=== PATIENT | female | born 1965 | race African-American/Black ===

== ENCOUNTER → 2016-08-03 | Outpatient (CLI) | payer BC | LOC: MC.RAD 09:00 | DX: Z12.31 Encounter for screening mammogram for malignant neoplasm of breast (principal); R92.8 Other abnormal and inconclusive findings on diagnostic imaging of breast ==

== ENCOUNTER → 2016-08-04 | Outpatient (CLI) | payer BC | LOC: MC.RAD 13:00 | DX: D48.62 Neoplasm of uncertain behavior of left breast (principal) ==

== ENCOUNTER → 2016-08-10 | Outpatient (CLI) | payer BC | LOC: MC.RAD 07:58 | DX: D48.62 Neoplasm of uncertain behavior of left breast (principal) ==

== ENCOUNTER → 2017-09-02 | Outpatient (CLI) | payer BC | LOC: COL.RAD 11:06 | DX: N85.8 Other specified noninflammatory disorders of uterus (principal) ==

== ENCOUNTER → 2018-10-09 | Outpatient (CLI) | payer BC | LOC: SUN.DIA 12:33 | DX: E11.9 Type 2 diabetes mellitus without complications (principal); I10 Essential (primary) hypertension; E66.9 Obesity, unspecified | CPT/HCPCS: G0108 ==

== ENCOUNTER → 2018-11-10 | Outpatient (CLI) | payer BC | LOC: DIA.ED 09:42 → SUN.DIA 15:08 → DIA.ED 15:38 | DX: E11.9 Type 2 diabetes mellitus without complications (principal); I10 Essential (primary) hypertension; E66.9 Obesity, unspecified | CPT/HCPCS: G0108 ==

== ENCOUNTER → 2019-06-08 | Outpatient (CLI) | payer OTHER | LOC: MC.RAD 10:39 | DX: Z12.31 Encounter for screening mammogram for malignant neoplasm of breast (principal) ==

== ENCOUNTER 2021-05-12 12:57 | Outpatient (CLI) | payer OTHER ==
[2021-05-12 13:15] VITALS: BP 132/99; PULSE 82; TEMP 99.1
[2021-05-12 13:30] VITALS: BP 139/100; PULSE 87; TEMP 99.1
[2021-05-12] MEDS ORDERED: MAXZIDE-25MG TA1 TAB PO (13:41)
[2021-05-12] MEDS ORDERED: 00186-0370-20 IH (13:41)
[2021-05-12] MEDS ORDERED: SINGULAIR 110 MG/TAB PO (13:42)
[2021-05-12] MEDS ORDERED: LIPITOR20 MG PO (13:42)
[2021-05-12] MEDS ORDERED: ZYRTEC 10MG10 MG PO (13:43)
[2021-05-12 13:45] VITALS: BP 154/97; PULSE 76; TEMP 99.1
[2021-05-12 14:00] VITALS: BP 149/97; PULSE 75; TEMP 99.1
[2021-05-12 14:15] VITALS: BP 155/93; PULSE 72; TEMP 99.1
[2021-05-12 14:30] VITALS: BP 146/91; PULSE 66; TEMP 99.1
== END 2021-05-12 14:40 | disposition home or self-care (01) ==
LOC: EUO 12:57
DX: U07.1 COVID-19 (principal); E11.9 Type 2 diabetes mellitus without complications
CPT/HCPCS: M0247; Q0247